=== PATIENT | male | born 1945 ===

== ENCOUNTER 2022-12-09 12:08 | Inpatient (IN) | payer MEDICARE, MEDICAID ==
[~2022-12-09] VITALS: Ht 170.2 cm; Wt 86.0 kg
[2022-12-09] MEDS ORDERED: CEFEPIME HCL 1 GM in DEXTROSE 5%-WATER 50 ML IV ONE (12:15)
[2022-12-09] MEDS ORDERED: 0.9% SODIUM CHLORIDE 10 ML SYRINGE IVP PRN (12:15)
[2022-12-09] MEDS ORDERED: INSU100V SQ (12:27)
[2022-12-09] MEDS ORDERED: ALLO-97 PO (12:27)
[2022-12-09] MEDS ORDERED: VALS160T2 PO (12:27)
[2022-12-09] MEDS ORDERED: DICL100G51 TP (12:27)
[2022-12-09] MEDS ORDERED: B CO1CAP6 PO (12:27)
[2022-12-09] MEDS ORDERED: CARV12 PO (12:27)
[2022-12-09] MEDS ORDERED: MIRT-89 PO (12:27)
[2022-12-09] MEDS ORDERED: CALC0.2521 PO (12:27)
[2022-12-09] MEDS ORDERED: INSLAN SQ (12:27)
[2022-12-09] MEDS ORDERED: ASPI-1450 PO (12:27)
[2022-12-09] MEDS ORDERED: SEVE0.8P6 PO (12:27)
[2022-12-09] MEDS ORDERED: TRAM-559 PO (12:27)
[2022-12-09] MEDS ORDERED: TAMS-13 PO (12:27)
[2022-12-09] MEDS ORDERED: GABA-1216 PO (12:27)
[2022-12-09] MEDS ORDERED: ATOR20TA PO (12:27)
[2022-12-09] MEDS ORDERED: AMOX1TAB15 PO (12:27)
[2022-12-09] MEDS ORDERED: CEPH-558 PO (12:27)
[2022-12-09] MEDS ORDERED: APIX2.5T PO (12:27)
[2022-12-09] MEDS ORDERED: CITA10TA99 PO (12:27)
[2022-12-09] MEDS ORDERED: SODIUM CHLORIDE 0.9% 1,350 ML IV ONE (12:30)
[2022-12-09 12:32] LABS: BASOPHILS % (AUTO) 0.4 % (0.0-2.0); EOSINOPHILS % (AUTO) 0 % (1.0-6.0); HEMATOCRIT 26.3 % (41-53); HEMOGLOBIN 8.5 g/dL (13.5-17.5); LYMPHOCYTES # (AUTO) 0.9 K/uL (1.0-4.8); LYMPHOCYTES % (AUTO) 3.8 % (22.0-44.0); MEAN CORPUSCULAR HEMOGLOBIN 29.6 pg (26.0-34.0); MEAN CORPUSCULAR HGB CONC 32.2 G/dL (31.0-37.0); MEAN CORPUSCULAR VOLUME 92 fL (80-100); MONOCYTES # (AUTO) 0.9 K/uL (0.1-1.0); NEUTROPHILS # (AUTO) 21.6 K/uL (1.8-7.7); NEUTROPHILS % (AUTO) 91.8 % (40.0-70.0); PLATELET COUNT (AUTO) 438 K/uL (150-450); RED BLOOD CELL COUNT(AUTO) 2.86 MIL/uL (4.50-5.90); RED CELL DISTRIBUTION WIDTH 16.8 % (11.5-14.5)
[2022-12-09 12:45] LABS: INR 1.4 (0.9-1.1); PROTHROMBIN TIME 14.2 SEC (9.4-11.6)
[2022-12-09 12:46] LABS: ANION GAP 15 mmol/L (8-16); CALCIUM, TOTAL 8.8 mg/dL (8.8-10.5); CARBON DIOXIDE 25 mmol/L (22-29); CHLORIDE 91 mmol/L (98-107); CREATININE 7.25 mg/dL (0.60-1.30); GLOMERULAR FILTR. RATE CALC 7 mL/min (>60); GLUCOSE,RANDOM 225 mg/dL (70-110); POTASSIUM 4.4 mmol/L (3.5-5.1); SODIUM SERUM 131 mmol/L (136-145)
[2022-12-09 12:52] LABS: ALANINE AMINOTRANSFERASE 16 U/L (12-78); ALBUMIN 1.4 g/dL (3.4-5.0); ALKALINE PHOSPHATASE 516 U/L (46-116); ASPARTATE AMINOTRANSFERASE 40 U/L (15-37); BILIRUBIN,TOTAL 1.2 mg/dL (0.1-1.0); TOTAL PROTEIN, SERUM 6.4 g/dL (6.4-8.2)
[2022-12-09 13:08] LABS: LACTIC ACID 2.4 mmol/L (0.4-2.0)
[2022-12-09 13:52] LABS: COVID AG,FIA SOURCE NASAL SWAB
[2022-12-09 14:17] LABS: INFLUENZA TYPE A NEGATIVE FOR TYPE A (NEGATIVE); INFLUENZA TYPE B NEGATIVE FOR TYPE B (NEGATIVE)
[2022-12-09] MEDS ORDERED: BISACODYL 10 MG RECTAL RECTAL SUPPOSITORY PR PRN (17:45)
[2022-12-09] MEDS ORDERED: MAGNESIUM HYDROXIDE SUSPENSION 30 ML UDCUP PO PRN (17:45)
[2022-12-09] MEDS ORDERED: SODIUM CHLORIDE 0.9% 1,000 ML IV ONE (17:45)
[2022-12-09] MEDS ORDERED: ONDANSETRON HCL 4 MG/2 ML VIAL IVP PRN (17:45)
[2022-12-09] MEDS ORDERED: PIPERACILLIN/TAZO 3.375 GM/D5W 50 ML IV ONE (18:00)
[2022-12-09] MEDS ORDERED: SEVE800T17 PO (18:10)
[2022-12-09] MEDS ORDERED: PENTETATE DTPA TC99M/MCL ISOTOPE 1 EA INJ INJ ONE (20:05)
[2022-12-09] MEDS ORDERED: MAA ALBUMIN AGGREGATED TC99M/UD<10MCL ISOTOPE 1 EA INJ INJ ONE (20:25)
[2022-12-09] MEDS ORDERED: PIPERACILLIN SODIUM/TAZOBACTAM 0.75 GM in DEXTROSE 5%-WATER 50 ML IV PRN (20:30)
[2022-12-09] MEDS: DOCUSATE SODIUM 100 MG CAPSULE PO SCH (21:00)
[2022-12-10] VITALS (13 sets, daily range): BP systolic 95–162; BP diastolic 38–93
[2022-12-10] MEDS: HEPARIN SODIUM,PORCINE 5,000 UNITS/ML VIAL SQ SCH ×2 (00:01→09:17)
[2022-12-10] MEDS: PIPERACILLIN SODIUM/TAZOBACTAM 2.25 GM in DEXTROSE 5%-WATER 50 ML IV SCH ×2 (01:51→09:19)
[2022-12-10] MEDS: NOREPINEPHRINE 8 MG/D5%-WATER 250 ML IV PRN (02:57)
[2022-12-10 06:04] LABS: BASOPHILS % (AUTO) 0.1 % (0.0-2.0); EOSINOPHILS % (AUTO) 0.4 % (1.0-6.0); HEMATOCRIT 27.3 % (41-53); HEMOGLOBIN 8.7 g/dL (13.5-17.5); LYMPHOCYTES # (AUTO) 0.9 K/uL (1.0-4.8); LYMPHOCYTES % (AUTO) 5.1 % (22.0-44.0); MEAN CORPUSCULAR HEMOGLOBIN 29.7 pg (26.0-34.0); MEAN CORPUSCULAR HGB CONC 31.9 G/dL (31.0-37.0); MEAN CORPUSCULAR VOLUME 93 fL (80-100); MONOCYTES # (AUTO) 0.8 K/uL (0.1-1.0); MONOCYTES % (AUTO) 4.5 % (2.0-9.0); NEUTROPHILS # (AUTO) 15.5 K/uL (1.8-7.7); PLATELET COUNT (AUTO) 422 K/uL (150-450); RED BLOOD CELL COUNT(AUTO) 2.94 MIL/uL (4.50-5.90); RED CELL DISTRIBUTION WIDTH 17.2 % (11.5-14.5)
[2022-12-10 06:17] LABS: CALCIUM, TOTAL 8.5 mg/dL (8.8-10.5); CREATININE 7.57 mg/dL (0.60-1.30); POTASSIUM 4.4 mmol/L (3.5-5.1)
[2022-12-10 06:18] LABS: NEUTROPHILS % (AUTO) 89.9 % (40.0-70.0)
[2022-12-10] MEDS: DOCUSATE SODIUM 100 MG CAPSULE PO SCH ×2 (09:00→20:47)
[2022-12-10] MEDS ORDERED: -POST HEMODIALYSIS NOTE- MISC SCH (09:00)
[2022-12-10] MEDS: PANTOPRAZOLE SODIUM 40 MG DR TABLET PO SCH (09:17)
[2022-12-10] MEDS ORDERED: VANCOMYCIN HCL 750 MG in DEXTROSE 5%-WATER 250 ML IV ONE (12:00)
[2022-12-10] MEDS ORDERED: VANCOMYCIN 1GM/WATER(PEG/NADA) 200 ML IV PRN (12:15)
[2022-12-10] MEDS ORDERED: DEXTROSE 50%-WATER 25 GM/50 ML SYRINGE IVP PRN (12:15)
[2022-12-10] MEDS: INSULIN LISPRO 100 UNITS/ML SQ PRN ×2 (13:10→17:55)
[2022-12-10] MEDS ORDERED: SODIUM CHLORIDE 0.9% 250 ML IV ONE (13:25)
[2022-12-10] MEDS: ACETAMINOPHEN 325 MG TABLET PO PRN (15:48)
[2022-12-10 18:01] LABS: GLUCOSE,POINT OF CARE 209 MG/DL (70-110)
[2022-12-10 19:01] LABS: GLUCOSE,POINT OF CARE 190 MG/DL (70-110)
[2022-12-10] MEDS ORDERED: VANCOMYCIN 1GM/WATER(PEG/NADA) 200 ML IV ONE (20:00)
[2022-12-10] MEDS: APIXABAN 2.5 MG TABLET PO SCH (20:47)
[2022-12-10] MEDS: TAMSULOSIN HCL 0.4 MG CAPSULE PO SCH (20:47)
[2022-12-10] MEDS: ATORVASTATIN CALCIUM 20 MG TABLET PO SCH (20:47)
[2022-12-10] MEDS: MIRTAZAPINE 15 MG TABLET PO SCH (20:47)
[2022-12-10] MEDS: CLINDAMYCIN 900 MG/D5% WATER 50 ML IV SCH (23:10)
[2022-12-11] VITALS: BP 118/51
[2022-12-11] MEDS: ACETAMINOPHEN 325 MG TABLET PO PRN (01:12)
[2022-12-11 04:00] VITALS: BP 106/52
[2022-12-11] MEDS: CLINDAMYCIN 900 MG/D5% WATER 50 ML IV SCH ×3 (06:02→22:53)
[2022-12-11] MEDS: INSULIN LISPRO 100 UNITS/ML SQ PRN ×3 (06:09→17:43)
[2022-12-11 06:46] LABS: GLUCOSE,POINT OF CARE 198 MG/DL (70-110)
[2022-12-11 08:00] VITALS: BP 110/56
[2022-12-11] MEDS: DOCUSATE SODIUM 100 MG CAPSULE PO SCH ×2 (09:00→20:12)
[2022-12-11 09:05] LABS: BASOPHILS % (AUTO) 0.6 % (0.0-2.0); EOSINOPHILS % (AUTO) 0.6 % (1.0-6.0); HEMATOCRIT 26.1 % (41-53); HEMOGLOBIN 8.1 g/dL (13.5-17.5); LYMPHOCYTES % (AUTO) 6.4 % (22.0-44.0); MEAN CORPUSCULAR HEMOGLOBIN 29.2 pg (26.0-34.0); MEAN CORPUSCULAR HGB CONC 31.2 G/dL (31.0-37.0); MEAN CORPUSCULAR VOLUME 94 fL (80-100); MONOCYTES % (AUTO) 6.2 % (2.0-9.0); NEUTROPHILS # (AUTO) 13.5 K/uL (1.8-7.7); PLATELET COUNT (AUTO) 432 K/uL (150-450); RED BLOOD CELL COUNT(AUTO) 2.78 MIL/uL (4.50-5.90)
[2022-12-11 09:06] LABS: NEUTROPHILS % (AUTO) 86.2 % (40.0-70.0)
[2022-12-11 09:17] LABS: CALCIUM, TOTAL 8.3 mg/dL (8.8-10.5); CREATININE 5.17 mg/dL (0.60-1.30); POTASSIUM 3.8 mmol/L (3.5-5.1)
[2022-12-11] MEDS: APIXABAN 2.5 MG TABLET PO SCH ×2 (09:32→20:12)
[2022-12-11] MEDS: PANTOPRAZOLE SODIUM 40 MG DR TABLET PO SCH (09:32)
[2022-12-11 12:00] VITALS: BP 93/51
[2022-12-11] MEDS: MORPHINE SULFATE 2 MG/ML SYRINGE IVP PRN (12:06)
[2022-12-11] MEDS: ALBUMIN HUMAN 25%-25GM/100ML 100 ML IV SCH (12:07)
[2022-12-11 14:01] LABS: GLUCOSE,POINT OF CARE 220 MG/DL (70-110)
[2022-12-11 19:11] LABS: GLUCOSE,POINT OF CARE 207 MG/DL (70-110)
[2022-12-11 20:00] VITALS: BP 108/50
[2022-12-11] MEDS: TAMSULOSIN HCL 0.4 MG CAPSULE PO SCH (20:11)
[2022-12-11] MEDS: ATORVASTATIN CALCIUM 20 MG TABLET PO SCH (20:12)
[2022-12-11] MEDS: MIRTAZAPINE 15 MG TABLET PO SCH (20:12)
[2022-12-12] VITALS: BP 101/62
[2022-12-12] MEDS: ALBUMIN HUMAN 25%-25GM/100ML 100 ML IV SCH ×2 (00:01→12:13)
[2022-12-12] MEDS: INSULIN LISPRO 100 UNITS/ML SQ PRN ×3 (00:02→17:45)
[2022-12-12 00:11] LABS: GLUCOSE,POINT OF CARE 159 MG/DL (70-110)
[2022-12-12 04:00] VITALS: BP 102/53
[2022-12-12 05:54] LABS: BASOPHILS % (AUTO) 0.3 % (0.0-2.0); EOSINOPHILS % (AUTO) 0.9 % (1.0-6.0); HEMATOCRIT 22.4 % (41-53); HEMOGLOBIN 7.2 g/dL (13.5-17.5); LYMPHOCYTES # (AUTO) 0.8 K/uL (1.0-4.8); LYMPHOCYTES % (AUTO) 6.9 % (22.0-44.0); MEAN CORPUSCULAR HEMOGLOBIN 29.9 pg (26.0-34.0); MEAN CORPUSCULAR HGB CONC 32.3 G/dL (31.0-37.0); MEAN CORPUSCULAR VOLUME 93 fL (80-100); MONOCYTES # (AUTO) 0.8 K/uL (0.1-1.0); NEUTROPHILS # (AUTO) 10.1 K/uL (1.8-7.7); NEUTROPHILS % (AUTO) 84.9 % (40.0-70.0); PLATELET COUNT (AUTO) 381 K/uL (150-450); RED BLOOD CELL COUNT(AUTO) 2.41 MIL/uL (4.50-5.90); RED CELL DISTRIBUTION WIDTH 17.1 % (11.5-14.5)
[2022-12-12 06:04] LABS: ANION GAP 15 mmol/L (8-16); CALCIUM, TOTAL 8.4 mg/dL (8.8-10.5); CARBON DIOXIDE 24 mmol/L (22-29); CHLORIDE 96 mmol/L (98-107); CREATININE 5.87 mg/dL (0.60-1.30); GLOMERULAR FILTR. RATE CALC 9 mL/min (>60); GLUCOSE,RANDOM 157 mg/dL (70-110); POTASSIUM 4.5 mmol/L (3.5-5.1); SODIUM SERUM 135 mmol/L (136-145); VANCOMYCIN,RANDOM 18.7 mcg/mL (25.0-50.0)
[2022-12-12] MEDS: CLINDAMYCIN 900 MG/D5% WATER 50 ML IV SCH ×3 (06:23→22:31)
[2022-12-12] MEDS: DOCUSATE SODIUM 100 MG CAPSULE PO SCH ×2 (08:10→21:00)
[2022-12-12] MEDS: EPOETIN ALFA 10,000 UNITS/ML VIAL SQ SCH (08:10)
[2022-12-12] MEDS: APIXABAN 2.5 MG TABLET PO SCH ×2 (08:10→21:40)
[2022-12-12] MEDS: PANTOPRAZOLE SODIUM 40 MG DR TABLET PO SCH (08:11)
[2022-12-12 08:31] LABS: GLUCOSE,POINT OF CARE 147 MG/DL (70-110)
[2022-12-12 12:00] VITALS: BP 102/51
[2022-12-12] MEDS: ACETAMINOPHEN 325 MG TABLET PO PRN (12:13)
[2022-12-12] MEDS ORDERED: VANCOMYCIN HCL 750 MG in DEXTROSE 5%-WATER 250 ML IV ONE (15:00)
[2022-12-12 16:00] VITALS: BP 123/70
[2022-12-12 20:00] VITALS: BP 138/58
[2022-12-12 20:31] LABS: GLUCOSE,POINT OF CARE 173 MG/DL (70-110)
[2022-12-12 20:31] LABS: GLUCOSE,POINT OF CARE 171 MG/DL (70-110)
[2022-12-12] MEDS: ATORVASTATIN CALCIUM 20 MG TABLET PO SCH (21:40)
[2022-12-12] MEDS: TAMSULOSIN HCL 0.4 MG CAPSULE PO SCH (21:40)
[2022-12-12] MEDS: MIRTAZAPINE 15 MG TABLET PO SCH (21:40)
[2022-12-12] MEDS ORDERED: SODIUM CHLORIDE 0.9% 250 ML IV ONE (22:33)
[2022-12-13] VITALS: BP 138/52
[2022-12-13] MEDS: INSULIN LISPRO 100 UNITS/ML SQ PRN ×3 (00:03→23:45)
[2022-12-13] MEDS: ALBUMIN HUMAN 25%-25GM/100ML 100 ML IV SCH ×3 (00:07→23:45)
[2022-12-13] MEDS: ACETAMINOPHEN 325 MG TABLET PO PRN (01:15)
[2022-12-13 04:00] VITALS: BP 90/47
[2022-12-13 05:31] LABS: GLUCOSE,POINT OF CARE 171 MG/DL (70-110)
[2022-12-13 05:44] LABS: HEMATOCRIT 23.3 % (41-53); HEMOGLOBIN 7.5 g/dL (13.5-17.5); MONOCYTES # (AUTO) 0.8 K/uL (0.1-1.0); NEUTROPHILS # (AUTO) 9.7 K/uL (1.8-7.7)
[2022-12-13 05:52] LABS: BASOPHILS % (AUTO) 0.3 % (0.0-2.0); EOSINOPHILS % (AUTO) 0.7 % (1.0-6.0); LYMPHOCYTES % (AUTO) 8.4 % (22.0-44.0); MEAN CORPUSCULAR HGB CONC 32.2 G/dL (31.0-37.0); MEAN CORPUSCULAR VOLUME 93 fL (80-100); MONOCYTES % (AUTO) 6.9 % (2.0-9.0); NEUTROPHILS % (AUTO) 83.7 % (40.0-70.0); PLATELET COUNT (AUTO) 356 K/uL (150-450); RED CELL DISTRIBUTION WIDTH 16.6 % (11.5-14.5)
[2022-12-13] MEDS: CLINDAMYCIN 900 MG/D5% WATER 50 ML IV SCH ×2 (06:02→13:22)
[2022-12-13 06:03] LABS: ALBUMIN 2.3 g/dL (3.4-5.0); BILIRUBIN,TOTAL 2.6 mg/dL (0.1-1.0); CALCIUM, TOTAL 8.5 mg/dL (8.8-10.5); CREATININE 6.87 mg/dL (0.60-1.30); POTASSIUM 4.7 mmol/L (3.5-5.1); TOTAL PROTEIN, SERUM 6.8 g/dL (6.4-8.2)
[2022-12-13 08:00] VITALS: BP 107/48
[2022-12-13] MEDS: DOCUSATE SODIUM 100 MG CAPSULE PO SCH ×2 (08:24→20:54)
[2022-12-13] MEDS: APIXABAN 2.5 MG TABLET PO SCH ×2 (08:25→20:52)
[2022-12-13] MEDS: PANTOPRAZOLE SODIUM 40 MG DR TABLET PO SCH (08:27)
[2022-12-13 11:52] LABS: GLUCOSE,POINT OF CARE 139 MG/DL (70-110)
[2022-12-13 12:00] VITALS: BP 112/39
[2022-12-13 14:21] LABS: GLUCOSE,POINT OF CARE 189 MG/DL (70-110)
[2022-12-13 16:04] VITALS: BP 118/59
[2022-12-13] MEDS: NOREPINEPHRINE 8 MG/D5%-WATER 250 ML IV PRN (17:30)
[2022-12-13 19:06] LABS: GLUCOSE,POINT OF CARE 167 MG/DL (70-110)
[2022-12-13 20:00] VITALS: BP 119/54
[2022-12-13] MEDS: MIRTAZAPINE 15 MG TABLET PO SCH (20:52)
[2022-12-13] MEDS: ATORVASTATIN CALCIUM 20 MG TABLET PO SCH (20:52)
[2022-12-13] MEDS: TAMSULOSIN HCL 0.4 MG CAPSULE PO SCH (20:52)
[2022-12-13] MEDS ORDERED: SODIUM CHLORIDE 0.9% 250 ML IV ONE (23:50)
[2022-12-14] VITALS (13 sets, daily range): BP systolic 111–134; BP diastolic 42–64
[2022-12-14 01:11] LABS: GLUCOSE,POINT OF CARE 171 MG/DL (70-110)
[2022-12-14 05:43] LABS: BASOPHILS % (AUTO) 0.4 % (0.0-2.0); EOSINOPHILS % (AUTO) 1.2 % (1.0-6.0); HEMATOCRIT 24.2 % (41-53); HEMOGLOBIN 7.9 g/dL (13.5-17.5); LYMPHOCYTES # (AUTO) 0.6 K/uL (1.0-4.8); LYMPHOCYTES % (AUTO) 5.1 % (22.0-44.0); MEAN CORPUSCULAR HGB CONC 32.5 G/dL (31.0-37.0); MEAN CORPUSCULAR VOLUME 92 fL (80-100); MONOCYTES # (AUTO) 0.7 K/uL (0.1-1.0); MONOCYTES % (AUTO) 6.3 % (2.0-9.0); NEUTROPHILS # (AUTO) 9.6 K/uL (1.8-7.7); PLATELET COUNT (AUTO) 406 K/uL (150-450); RED BLOOD CELL COUNT(AUTO) 2.63 MIL/uL (4.50-5.90); RED CELL DISTRIBUTION WIDTH 17.1 % (11.5-14.5)
[2022-12-14 05:52] LABS: ALBUMIN 2.3 g/dL (3.4-5.0); BILIRUBIN,TOTAL 1.8 mg/dL (0.1-1.0); CALCIUM, TOTAL 8.3 mg/dL (8.8-10.5); CREATININE 4.05 mg/dL (0.60-1.30); POTASSIUM 3.5 mmol/L (3.5-5.1); TOTAL PROTEIN, SERUM 6.4 g/dL (6.4-8.2)
[2022-12-14 06:51] LABS: GLUCOSE,POINT OF CARE 117 MG/DL (70-110)
[2022-12-14] MEDS: APIXABAN 2.5 MG TABLET PO SCH ×2 (08:28→21:11)
[2022-12-14] MEDS: PANTOPRAZOLE SODIUM 40 MG DR TABLET PO SCH (08:28)
[2022-12-14] MEDS: DOCUSATE SODIUM 100 MG CAPSULE PO SCH ×2 (08:29→21:00)
[2022-12-14] MEDS: EPOETIN ALFA 10,000 UNITS/ML VIAL SQ SCH (08:29)
[2022-12-14] MEDS ORDERED: CALCITRIOL 0.25 MCG CAPSULE PO ONE (09:00)
[2022-12-14] MEDS: HYDROCODONE/ACETAMINOPHEN 5-325 MG TABLET PO PRN (09:12)
[2022-12-14] MEDS: INSULIN LISPRO 100 UNITS/ML SQ PRN (18:01)
[2022-12-14 19:11] LABS: GLUCOSE,POINT OF CARE 153 MG/DL (70-110)
[2022-12-14 19:11] LABS: GLUCOSE,POINT OF CARE 168 MG/DL (70-110)
[2022-12-14] MEDS: TAMSULOSIN HCL 0.4 MG CAPSULE PO SCH (21:10)
[2022-12-14] MEDS: ATORVASTATIN CALCIUM 20 MG TABLET PO SCH (21:10)
[2022-12-14] MEDS: MIRTAZAPINE 15 MG TABLET PO SCH (21:11)
[2022-12-15] VITALS: BP 115/56
[2022-12-15 04:00] VITALS: BP 117/55
[2022-12-15 07:06] LABS: GLUCOSE,POINT OF CARE 140 MG/DL (70-110)
[2022-12-15 07:06] LABS: GLUCOSE,POINT OF CARE 131 MG/DL (70-110)
[2022-12-15] MEDS: DOCUSATE SODIUM 100 MG CAPSULE PO SCH ×2 (07:46→20:29)
[2022-12-15 08:00] VITALS: BP 111/67
[2022-12-15] MEDS: APIXABAN 2.5 MG TABLET PO SCH ×2 (08:33→20:27)
[2022-12-15] MEDS: PANTOPRAZOLE SODIUM 40 MG DR TABLET PO SCH (08:33)
[2022-12-15 12:00] VITALS: BP 127/50
[2022-12-15] MEDS: INSULIN LISPRO 100 UNITS/ML SQ PRN ×2 (12:18→18:12)
[2022-12-15] MEDS: HYDROCODONE/ACETAMINOPHEN 5-325 MG TABLET PO PRN (15:28)
[2022-12-15 16:00] VITALS: BP 113/51
[2022-12-15 16:21] LABS: GLUCOSE,POINT OF CARE 152 MG/DL (70-110)
[2022-12-15 19:11] LABS: GLUCOSE,POINT OF CARE 157 MG/DL (70-110)
[2022-12-15 20:00] VITALS: BP 110/64
[2022-12-15] MEDS: TAMSULOSIN HCL 0.4 MG CAPSULE PO SCH (20:28)
[2022-12-15] MEDS: ATORVASTATIN CALCIUM 20 MG TABLET PO SCH (20:28)
[2022-12-15] MEDS: MIRTAZAPINE 15 MG TABLET PO SCH (20:28)
[2022-12-16] VITALS (10 sets, daily range): BP systolic 103–139; BP diastolic 52–79
[2022-12-16 05:40] LABS: BASOPHILS % (AUTO) 0.6 % (0.0-2.0); EOSINOPHILS % (AUTO) 1.1 % (1.0-6.0); HEMATOCRIT 29.8 % (41-53); HEMOGLOBIN 9.5 g/dL (13.5-17.5); LYMPHOCYTES # (AUTO) 0.8 K/uL (1.0-4.8); LYMPHOCYTES % (AUTO) 7.4 % (22.0-44.0); MEAN CORPUSCULAR HEMOGLOBIN 29.9 pg (26.0-34.0); MEAN CORPUSCULAR HGB CONC 31.9 G/dL (31.0-37.0); MEAN CORPUSCULAR VOLUME 94 fL (80-100); MONOCYTES # (AUTO) 0.8 K/uL (0.1-1.0); MONOCYTES % (AUTO) 6.9 % (2.0-9.0); NEUTROPHILS # (AUTO) 9.4 K/uL (1.8-7.7); PLATELET COUNT (AUTO) 476 K/uL (150-450); RED BLOOD CELL COUNT(AUTO) 3.17 MIL/uL (4.50-5.90); RED CELL DISTRIBUTION WIDTH 17.2 % (11.5-14.5)
[2022-12-16 05:49] LABS: ALBUMIN 1.9 g/dL (3.4-5.0); BILIRUBIN,TOTAL 1.4 mg/dL (0.1-1.0); CALCIUM, TOTAL 8.7 mg/dL (8.8-10.5); CREATININE 6.41 mg/dL (0.60-1.30); POTASSIUM 4.8 mmol/L (3.5-5.1); TOTAL PROTEIN, SERUM 6.3 g/dL (6.4-8.2)
[2022-12-16] MEDS: DOCUSATE SODIUM 100 MG CAPSULE PO SCH ×2 (08:53→20:15)
[2022-12-16] MEDS: APIXABAN 2.5 MG TABLET PO SCH ×2 (08:53→20:14)
[2022-12-16] MEDS: PANTOPRAZOLE SODIUM 40 MG DR TABLET PO SCH (08:53)
[2022-12-16] MEDS: EPOETIN ALFA 10,000 UNITS/ML VIAL SQ SCH (08:54)
[2022-12-16] MEDS ORDERED: SODIUM CHLORIDE 0.9% 1,000 ML ONE (10:23)
[2022-12-16 10:26] LABS: GLUCOSE,POINT OF CARE 133 MG/DL (70-110)
[2022-12-16] MEDS: INSULIN LISPRO 100 UNITS/ML SQ PRN ×3 (12:55→23:41)
[2022-12-16 13:06] LABS: GLUCOSE,POINT OF CARE 163 MG/DL (70-110)
[2022-12-16 17:21] LABS: GLUCOSE,POINT OF CARE 217 MG/DL (70-110)
[2022-12-16] MEDS ORDERED: VANCOMYCIN 1GM/WATER(PEG/NADA) 200 ML IV ONE (18:00)
[2022-12-16] MEDS: HYDROCODONE/ACETAMINOPHEN 5-325 MG TABLET PO PRN (20:14)
[2022-12-16] MEDS: ATORVASTATIN CALCIUM 20 MG TABLET PO SCH (20:14)
[2022-12-16] MEDS: TAMSULOSIN HCL 0.4 MG CAPSULE PO SCH (20:15)
[2022-12-16] MEDS: MIRTAZAPINE 15 MG TABLET PO SCH (20:15)
[2022-12-16 23:46] LABS: GLUCOSE,POINT OF CARE 173 MG/DL (70-110)
[2022-12-17] VITALS (15 sets, daily range): BP systolic 103–160; BP diastolic 43–88
[2022-12-17] MEDS: INSULIN LISPRO 100 UNITS/ML SQ PRN ×3 (06:46→18:17)
[2022-12-17 06:51] LABS: GLUCOSE,POINT OF CARE 167 MG/DL (70-110)
[2022-12-17] MEDS: DOCUSATE SODIUM 100 MG CAPSULE PO SCH ×2 (09:00→21:09)
[2022-12-17] MEDS: PANTOPRAZOLE SODIUM 40 MG DR TABLET PO SCH (09:22)
[2022-12-17] MEDS: APIXABAN 2.5 MG TABLET PO SCH ×2 (09:22→21:09)
[2022-12-17] MEDS: HYDROCODONE/ACETAMINOPHEN 5-325 MG TABLET PO PRN (12:04)
[2022-12-17] MEDS ORDERED: SODIUM CHLORIDE 0.9% 250 ML IV ONE (13:41)
[2022-12-17] MEDS ORDERED: SODIUM CHLORIDE 0.9% 2,000 ML ONE (14:21)
[2022-12-17] MEDS: DEXTROSE 5% IV SCH (16:25)
[2022-12-17] MEDS: CEFTAROLINE FOSAMIL IV SCH (16:25)
[2022-12-17] MEDS: WATER IV SCH (16:25)
[2022-12-17 20:46] LABS: GLUCOSE,POINT OF CARE 216 MG/DL (70-110)
[2022-12-17 20:46] LABS: GLUCOSE,POINT OF CARE 181 MG/DL (70-110)
[2022-12-17] MEDS: ATORVASTATIN CALCIUM 20 MG TABLET PO SCH (21:08)
[2022-12-17] MEDS: MIRTAZAPINE 15 MG TABLET PO SCH (21:08)
[2022-12-17] MEDS: TAMSULOSIN HCL 0.4 MG CAPSULE PO SCH (21:09)
[2022-12-18] MEDS: CEFTAROLINE FOSAMIL IV SCH ×3 (00:48→20:34)
[2022-12-18] MEDS: WATER IV SCH ×3 (00:48→20:34)
[2022-12-18] MEDS: DEXTROSE 5% IV SCH ×3 (00:48→20:34)
[2022-12-18] MEDS ORDERED: SODIUM CHLORIDE 0.9% 1,000 ML ONE (00:51)
[2022-12-18 05:27] VITALS: BP 125/63
[2022-12-18] MEDS: INSULIN LISPRO 100 UNITS/ML SQ PRN ×4 (06:09→20:36)
[2022-12-18 06:42] LABS: CREATININE 4.01 mg/dL (0.60-1.30)
[2022-12-18 06:48] LABS: ALBUMIN 1.9 g/dL (3.4-5.0); BILIRUBIN,TOTAL 1.3 mg/dL (0.1-1.0); CALCIUM, TOTAL 8.8 mg/dL (8.8-10.5); CREATININE 4.14 mg/dL (0.60-1.30); TOTAL PROTEIN, SERUM 6.7 g/dL (6.4-8.2)
[2022-12-18 07:00] LABS: BASOPHILS % (AUTO) 0.7 % (0.0-2.0); EOSINOPHILS % (AUTO) 1.2 % (1.0-6.0); HEMOGLOBIN 8.9 g/dL (13.5-17.5); MEAN CORPUSCULAR HEMOGLOBIN 30.3 pg (26.0-34.0); MEAN CORPUSCULAR HGB CONC 31.9 G/dL (31.0-37.0); MEAN CORPUSCULAR VOLUME 95 fL (80-100); MONOCYTES # (AUTO) 0.9 K/uL (0.1-1.0); NEUTROPHILS % (AUTO) 79.1 % (40.0-70.0); PLATELET COUNT (AUTO) 455 K/uL (150-450); RED BLOOD CELL COUNT(AUTO) 2.95 MIL/uL (4.50-5.90); RED CELL DISTRIBUTION WIDTH 18.3 % (11.5-14.5)
[2022-12-18 07:44] VITALS: BP 117/85
[2022-12-18] MEDS: DOCUSATE SODIUM 100 MG CAPSULE PO SCH ×2 (08:02→20:34)
[2022-12-18] MEDS: APIXABAN 2.5 MG TABLET PO SCH ×2 (08:02→20:34)
[2022-12-18] MEDS: PANTOPRAZOLE SODIUM 40 MG DR TABLET PO SCH (08:02)
[2022-12-18 08:21] LABS: GLUCOMETER DEV NAME(LOC) 5S.1B; GLUCOSE,POINT OF CARE 200 MG/DL (70-110)
[2022-12-18 11:31] VITALS: BP 124/80
[2022-12-18 14:56] LABS: GLUCOMETER DEV NAME(LOC) 5N.2C; GLUCOSE,POINT OF CARE 234 MG/DL (70-110)
[2022-12-18 15:57] VITALS: BP 131/74
[2022-12-18 19:42] VITALS: BP 160/90
[2022-12-18 20:22] LABS: GLUCOMETER DEV NAME(LOC) 5N.2C; GLUCOSE,POINT OF CARE 282 MG/DL (70-110)
[2022-12-18] MEDS: TAMSULOSIN HCL 0.4 MG CAPSULE PO SCH (20:33)
[2022-12-18] MEDS: ATORVASTATIN CALCIUM 20 MG TABLET PO SCH (20:33)
[2022-12-18] MEDS: MIRTAZAPINE 15 MG TABLET PO SCH (20:33)
[2022-12-18 20:36] LABS: GLUCOMETER DEV NAME(LOC) 5N.2C; GLUCOSE,POINT OF CARE 253 MG/DL (70-110)
[2022-12-18] MEDS: HYDROCODONE/ACETAMINOPHEN 5-325 MG TABLET PO PRN (20:36)
[2022-12-19] VITALS (13 sets, daily range): BP systolic 132–188; BP diastolic 66–113
[2022-12-19] MEDS: INSULIN LISPRO 100 UNITS/ML SQ PRN ×4 (06:03→21:27)
[2022-12-19 07:26] LABS: BASOPHILS % (AUTO) 0.6 % (0.0-2.0); EOSINOPHILS % (AUTO) 1.4 % (1.0-6.0); HEMATOCRIT 25.3 % (41-53); HEMOGLOBIN 8.1 g/dL (13.5-17.5); LYMPHOCYTES # (AUTO) 1.1 K/uL (1.0-4.8); LYMPHOCYTES % (AUTO) 12.1 % (22.0-44.0); MEAN CORPUSCULAR HEMOGLOBIN 30.4 pg (26.0-34.0); MEAN CORPUSCULAR HGB CONC 32.1 G/dL (31.0-37.0); MEAN CORPUSCULAR VOLUME 95 fL (80-100); MONOCYTES # (AUTO) 0.8 K/uL (0.1-1.0); MONOCYTES % (AUTO) 9.1 % (2.0-9.0); NEUTROPHILS # (AUTO) 7.1 K/uL (1.8-7.7); NEUTROPHILS % (AUTO) 76.8 % (40.0-70.0); PLATELET COUNT (AUTO) 402 K/uL (150-450); RED BLOOD CELL COUNT(AUTO) 2.67 MIL/uL (4.50-5.90); RED CELL DISTRIBUTION WIDTH 18.4 % (11.5-14.5)
[2022-12-19 07:45] LABS: CALCIUM, TOTAL 8.9 mg/dL (8.8-10.5); CREATININE 5.16 mg/dL (0.60-1.30); MAGNESIUM 2.2 mg/dL (1.80-2.40); PHOSPHORUS 5.1 mg/dL (2.5-4.9); POTASSIUM 3.9 mmol/L (3.5-5.1)
[2022-12-19 08:46] LABS: GLUCOMETER DEV NAME(LOC) 5S.1B; GLUCOSE,POINT OF CARE 194 MG/DL (70-110)
[2022-12-19] MEDS: DEXTROSE 5% IV SCH ×2 (08:47→21:14)
[2022-12-19] MEDS: CEFTAROLINE FOSAMIL IV SCH ×2 (08:47→21:14)
[2022-12-19] MEDS: WATER IV SCH ×2 (08:47→21:14)
[2022-12-19] MEDS: APIXABAN 2.5 MG TABLET PO SCH ×2 (08:48→21:15)
[2022-12-19] MEDS: DOCUSATE SODIUM 100 MG CAPSULE PO SCH ×2 (08:48→21:14)
[2022-12-19] MEDS: EPOETIN ALFA 10,000 UNITS/ML VIAL SQ SCH (08:48)
[2022-12-19] MEDS: PANTOPRAZOLE SODIUM 40 MG DR TABLET PO SCH (08:48)
[2022-12-19] MEDS ORDERED: SODIUM CHLORIDE 0.9% 1,000 ML ONE (11:01)
[2022-12-19] MEDS ORDERED: VANCOMYCIN HCL 500 MG in DEXTROSE 5%-WATER 100 ML IV ONE (16:00)
[2022-12-19] MEDS: ATORVASTATIN CALCIUM 20 MG TABLET PO SCH (21:15)
[2022-12-19] MEDS: TAMSULOSIN HCL 0.4 MG CAPSULE PO SCH (21:15)
[2022-12-19] MEDS: MIRTAZAPINE 15 MG TABLET PO SCH (21:21)
[2022-12-19 21:41] LABS: GLUCOMETER DEV NAME(LOC) 5N.1C; GLUCOSE,POINT OF CARE 229 MG/DL (70-110)
[2022-12-20] MEDS: ZOLPIDEM TARTRATE 5 MG TABLET PO PRN (01:32)
[2022-12-20 01:41] LABS: GLUCOMETER DEV NAME(LOC) 5S.2C; GLUCOSE,POINT OF CARE 202 MG/DL (70-110)
[2022-12-20] MEDS: INSULIN LISPRO 100 UNITS/ML SQ PRN ×3 (05:57→18:08)
[2022-12-20 06:26] LABS: GLUCOMETER DEV NAME(LOC) 5S.1B; GLUCOSE,POINT OF CARE 186 MG/DL (70-110)
[2022-12-20 06:26] LABS: GLUCOMETER DEV NAME(LOC) 5S.1B; GLUCOSE,POINT OF CARE 243 MG/DL (70-110)
[2022-12-20 06:28] LABS: BASOPHILS % (AUTO) 0.7 % (0.0-2.0); EOSINOPHILS % (AUTO) 1.5 % (1.0-6.0); HEMATOCRIT 27.2 % (41-53); HEMOGLOBIN 8.6 g/dL (13.5-17.5); LYMPHOCYTES # (AUTO) 0.9 K/uL (1.0-4.8); LYMPHOCYTES % (AUTO) 12.1 % (22.0-44.0); MEAN CORPUSCULAR HEMOGLOBIN 30.3 pg (26.0-34.0); MEAN CORPUSCULAR HGB CONC 31.8 G/dL (31.0-37.0); MEAN CORPUSCULAR VOLUME 95 fL (80-100); MONOCYTES # (AUTO) 0.8 K/uL (0.1-1.0); MONOCYTES % (AUTO) 10.2 % (2.0-9.0); NEUTROPHILS # (AUTO) 5.8 K/uL (1.8-7.7); NEUTROPHILS % (AUTO) 75.5 % (40.0-70.0); PLATELET COUNT (AUTO) 369 K/uL (150-450); RED BLOOD CELL COUNT(AUTO) 2.85 MIL/uL (4.50-5.90); RED CELL DISTRIBUTION WIDTH 19.4 % (11.5-14.5)
[2022-12-20 06:53] LABS: ALBUMIN 1.9 g/dL (3.4-5.0); BILIRUBIN,TOTAL 1.1 mg/dL (0.1-1.0); CALCIUM, TOTAL 8.9 mg/dL (8.8-10.5); CREATININE 3.76 mg/dL (0.60-1.30); POTASSIUM 3.6 mmol/L (3.5-5.1); TOTAL PROTEIN, SERUM 6.5 g/dL (6.4-8.2)
[2022-12-20 07:45] VITALS: BP 134/82
[2022-12-20] MEDS: CEFTAROLINE FOSAMIL IV SCH ×2 (09:18→20:08)
[2022-12-20] MEDS: WATER IV SCH ×2 (09:18→20:08)
[2022-12-20] MEDS: DOCUSATE SODIUM 100 MG CAPSULE PO SCH ×2 (09:18→20:07)
[2022-12-20] MEDS: DEXTROSE 5% IV SCH ×2 (09:18→20:08)
[2022-12-20] MEDS: APIXABAN 2.5 MG TABLET PO SCH ×2 (09:18→20:07)
[2022-12-20] MEDS: PANTOPRAZOLE SODIUM 40 MG DR TABLET PO SCH (09:18)
[2022-12-20 11:09] VITALS: BP 155/80
[2022-12-20 15:08] VITALS: BP 156/80
[2022-12-20 20:06] LABS: GLUCOMETER DEV NAME(LOC) 5N.1C; GLUCOSE,POINT OF CARE 208 MG/DL (70-110)
[2022-12-20 20:06] LABS: GLUCOMETER DEV NAME(LOC) 5N.1C; GLUCOSE,POINT OF CARE 179 MG/DL (70-110)
[2022-12-20] MEDS: ATORVASTATIN CALCIUM 20 MG TABLET PO SCH (20:07)
[2022-12-20] MEDS: TAMSULOSIN HCL 0.4 MG CAPSULE PO SCH (20:07)
[2022-12-20] MEDS: MIRTAZAPINE 15 MG TABLET PO SCH (20:07)
[2022-12-20 21:00] VITALS: BP 103/81
[2022-12-20 22:11] LABS: GLUCOMETER DEV NAME(LOC) 5S.1B; GLUCOSE,POINT OF CARE 170 MG/DL (70-110)
[2022-12-21] VITALS (15 sets, daily range): BP systolic 143–174; BP diastolic 65–90
[2022-12-21] MEDS ORDERED: IOHEXOL 350 MG/ML 100 ML VIAL ONE (00:57)
[2022-12-21] MEDS ORDERED: SODIUM CHLORIDE 0.9% 100 ML ONE (00:57)
[2022-12-21] MEDS: MORPHINE SULFATE 2 MG/ML SYRINGE IVP PRN (04:30)
[2022-12-21] MEDS: INSULIN LISPRO 100 UNITS/ML SQ PRN ×4 (05:59→21:32)
[2022-12-21 06:11] LABS: GLUCOMETER DEV NAME(LOC) 5N.2C; GLUCOSE,POINT OF CARE 179 MG/DL (70-110)
[2022-12-21 06:44] LABS: BASOPHILS % (AUTO) 0.6 % (0.0-2.0); EOSINOPHILS % (AUTO) 0.7 % (1.0-6.0); HEMATOCRIT 27.5 % (41-53); HEMOGLOBIN 8.7 g/dL (13.5-17.5); LYMPHOCYTES # (AUTO) 0.8 K/uL (1.0-4.8); LYMPHOCYTES % (AUTO) 8.9 % (22.0-44.0); MEAN CORPUSCULAR HEMOGLOBIN 30.1 pg (26.0-34.0); MEAN CORPUSCULAR HGB CONC 31.5 G/dL (31.0-37.0); MEAN CORPUSCULAR VOLUME 95 fL (80-100); NEUTROPHILS # (AUTO) 7.3 K/uL (1.8-7.7); NEUTROPHILS % (AUTO) 78.8 % (40.0-70.0); PLATELET COUNT (AUTO) 387 K/uL (150-450); RED BLOOD CELL COUNT(AUTO) 2.89 MIL/uL (4.50-5.90); RED CELL DISTRIBUTION WIDTH 19.5 % (11.5-14.5)
[2022-12-21 06:54] LABS: INR 1.5 (0.9-1.1); PROTHROMBIN TIME 15.4 SEC (9.4-11.6)
[2022-12-21 07:02] LABS: ALBUMIN 2.1 g/dL (3.4-5.0); BILIRUBIN,TOTAL 1.3 mg/dL (0.1-1.0); C-REACTIVE PROTEIN QUANT 12.29 mg/dL (0.00-0.30); CALCIUM, TOTAL 9.3 mg/dL (8.8-10.5); CREATININE 4.64 mg/dL (0.60-1.30); POTASSIUM 3.8 mmol/L (3.5-5.1); TOTAL PROTEIN, SERUM 6.8 g/dL (6.4-8.2); VANCOMYCIN,RANDOM 21.1 mcg/mL (25.0-50.0)
[2022-12-21] MEDS: DEXTROSE 5% IV SCH ×2 (07:58→21:26)
[2022-12-21] MEDS: CEFTAROLINE FOSAMIL IV SCH ×2 (07:58→21:26)
[2022-12-21] MEDS: DOCUSATE SODIUM 100 MG CAPSULE PO SCH ×2 (07:58→21:28)
[2022-12-21] MEDS: WATER IV SCH ×2 (07:58→21:26)
[2022-12-21] MEDS: APIXABAN 2.5 MG TABLET PO SCH (07:58)
[2022-12-21] MEDS: EPOETIN ALFA 10,000 UNITS/ML VIAL SQ SCH (07:59)
[2022-12-21] MEDS: PANTOPRAZOLE SODIUM 40 MG DR TABLET PO SCH (07:59)
[2022-12-21] MEDS ORDERED: HEPARIN SODIUM,PORCINE 5,000 UNITS/ML VIAL IVP PRN ×2 (15:45)
[2022-12-21] MEDS ORDERED: HEPARIN SODIUM,PORCINE 5,000 UNITS/ML VIAL IVP ONE (16:00)
[2022-12-21 16:26] LABS: BASOPHILS % (AUTO) 0.7 % (0.0-2.0); EOSINOPHILS % (AUTO) 0.7 % (1.0-6.0); HEMATOCRIT 29.1 % (41-53); HEMOGLOBIN 9.2 g/dL (13.5-17.5); LYMPHOCYTES # (AUTO) 0.8 K/uL (1.0-4.8); MEAN CORPUSCULAR HEMOGLOBIN 29.9 pg (26.0-34.0); MEAN CORPUSCULAR HGB CONC 31.5 G/dL (31.0-37.0); MEAN CORPUSCULAR VOLUME 95 fL (80-100); MONOCYTES # (AUTO) 0.9 K/uL (0.1-1.0); MONOCYTES % (AUTO) 11.2 % (2.0-9.0); NEUTROPHILS % (AUTO) 77.4 % (40.0-70.0); PLATELET COUNT (AUTO) 355 K/uL (150-450); RED BLOOD CELL COUNT(AUTO) 3.07 MIL/uL (4.50-5.90); RED CELL DISTRIBUTION WIDTH 19.4 % (11.5-14.5)
[2022-12-21 16:46] LABS: INR 1.5 (0.9-1.1); PROTHROMBIN TIME 15.2 SEC (9.4-11.6)
[2022-12-21] MEDS: HEPARIN SODIUM 25000 UNITS/D5W 250 ML IV PRN (17:15)
[2022-12-21 18:41] LABS: GLUCOMETER DEV NAME(LOC) 5N.1C; GLUCOSE,POINT OF CARE 155 MG/DL (70-110)
[2022-12-21 18:46] LABS: GLUCOMETER DEV NAME(LOC) 5N.2C; GLUCOSE,POINT OF CARE 146 MG/DL (70-110)
[2022-12-21] MEDS ORDERED: VANCOMYCIN HCL 500 MG in DEXTROSE 5%-WATER 100 ML IV ONE (20:00)
[2022-12-21] MEDS: TAMSULOSIN HCL 0.4 MG CAPSULE PO SCH (21:28)
[2022-12-21] MEDS: ZOLPIDEM TARTRATE 5 MG TABLET PO PRN (21:28)
[2022-12-21] MEDS: MIRTAZAPINE 15 MG TABLET PO SCH (21:28)
[2022-12-21] MEDS: ATORVASTATIN CALCIUM 20 MG TABLET PO SCH (21:29)
[2022-12-22] VITALS (8 sets, daily range): BP systolic 137–165; BP diastolic 73–98
[2022-12-22 06:20] LABS: BASOPHILS % (AUTO) 0.6 % (0.0-2.0); EOSINOPHILS % (AUTO) 1.3 % (1.0-6.0); HEMATOCRIT 28.1 % (41-53); LYMPHOCYTES % (AUTO) 11.3 % (22.0-44.0); MEAN CORPUSCULAR HEMOGLOBIN 30.5 pg (26.0-34.0); MEAN CORPUSCULAR HGB CONC 31.9 G/dL (31.0-37.0); MEAN CORPUSCULAR VOLUME 96 fL (80-100); MONOCYTES # (AUTO) 1.2 K/uL (0.1-1.0); MONOCYTES % (AUTO) 13.2 % (2.0-9.0); NEUTROPHILS # (AUTO) 6.5 K/uL (1.8-7.7); NEUTROPHILS % (AUTO) 73.6 % (40.0-70.0); PLATELET COUNT (AUTO) 346 K/uL (150-450); RED BLOOD CELL COUNT(AUTO) 2.94 MIL/uL (4.50-5.90); RED CELL DISTRIBUTION WIDTH 19.6 % (11.5-14.5)
[2022-12-22] MEDS: INSULIN LISPRO 100 UNITS/ML SQ PRN ×3 (06:23→17:50)
[2022-12-22 06:26] LABS: GLUCOMETER DEV NAME(LOC) 5N.1C; GLUCOSE,POINT OF CARE 151 MG/DL (70-110)
[2022-12-22 07:36] LABS: GLUCOMETER DEV NAME(LOC) 5S.1B; GLUCOSE,POINT OF CARE 146 MG/DL (70-110)
[2022-12-22] MEDS: PANTOPRAZOLE SODIUM 40 MG DR TABLET PO SCH (08:46)
[2022-12-22] MEDS: WATER IV SCH ×2 (08:46→20:41)
[2022-12-22] MEDS: DEXTROSE 5% IV SCH ×2 (08:46→20:41)
[2022-12-22] MEDS: DOCUSATE SODIUM 100 MG CAPSULE PO SCH ×2 (08:46→20:41)
[2022-12-22] MEDS: CEFTAROLINE FOSAMIL IV SCH ×2 (08:46→20:41)
[2022-12-22] MEDS: HEPARIN SODIUM 25000 UNITS/D5W 250 ML IV PRN (11:29)
[2022-12-22] MEDS ORDERED: MIDAZOLAM HCL 2 MG/2 ML VIAL ONE (14:25)
[2022-12-22] MEDS ORDERED: FLUMAZENIL 0.1 MG/ML 5 ML VIAL IVP ONE (14:25)
[2022-12-22] MEDS ORDERED: FentaNYL CITRATE PF 100 MCG/2 ML VIAL ONE (14:25)
[2022-12-22] MEDS ORDERED: NALOXONE HCL 0.4 MG/ML VIAL ONE (14:25)
[2022-12-22] MEDS ORDERED: FentaNYL CITRATE PF 100 MCG/2 ML VIAL IVP ONE ×2 (16:00)
[2022-12-22] MEDS ORDERED: MIDAZOLAM HCL 2 MG/2 ML VIAL IVP ONE (16:00)
[2022-12-22 20:36] LABS: GLUCOMETER DEV NAME(LOC) 5S.1B; GLUCOSE,POINT OF CARE 172 MG/DL (70-110)
[2022-12-22 20:36] LABS: GLUCOMETER DEV NAME(LOC) 5N.2C; GLUCOSE,POINT OF CARE 154 MG/DL (70-110)
[2022-12-22] MEDS: TAMSULOSIN HCL 0.4 MG CAPSULE PO SCH (20:41)
[2022-12-22] MEDS: ZOLPIDEM TARTRATE 5 MG TABLET PO PRN (20:41)
[2022-12-22] MEDS: MIRTAZAPINE 15 MG TABLET PO SCH (20:42)
[2022-12-22] MEDS: ATORVASTATIN CALCIUM 20 MG TABLET PO SCH (20:42)
[2022-12-23] VITALS (13 sets, daily range): BP systolic 129–173; BP diastolic 75–93
[2022-12-23 00:11] LABS: GLUCOMETER DEV NAME(LOC) 5N.1C; GLUCOSE,POINT OF CARE 117 MG/DL (70-110)
[2022-12-23] MEDS: CEFTAROLINE FOSAMIL IV SCH (08:34)
[2022-12-23] MEDS: EPOETIN ALFA 10,000 UNITS/ML VIAL SQ SCH (08:34)
[2022-12-23] MEDS: WATER IV SCH (08:34)
[2022-12-23] MEDS: DEXTROSE 5% IV SCH (08:34)
[2022-12-23] MEDS: PANTOPRAZOLE SODIUM 40 MG DR TABLET PO SCH (08:36)
[2022-12-23] MEDS: DOCUSATE SODIUM 100 MG CAPSULE PO SCH (08:36)
[2022-12-23] MEDS: HYDROCODONE/ACETAMINOPHEN 5-325 MG TABLET PO PRN (08:47)
[2022-12-23] MEDS: INSULIN LISPRO 100 UNITS/ML SQ PRN ×2 (12:31→17:44)
[2022-12-23] MEDS: HEPARIN SODIUM 25000 UNITS/D5W 250 ML IV PRN (12:37)
[2022-12-23 13:11] LABS: GLUCOMETER DEV NAME(LOC) 5S.1B; GLUCOSE,POINT OF CARE 134 MG/DL (70-110)
[2022-12-23 13:11] LABS: GLUCOMETER DEV NAME(LOC) 5S.1B; GLUCOSE,POINT OF CARE 233 MG/DL (70-110)
[2022-12-23 17:36] LABS: GLUCOMETER DEV NAME(LOC) 5S.1B; GLUCOSE,POINT OF CARE 163 MG/DL (70-110)
[2022-12-23] MEDS ORDERED: VANCOMYCIN HCL 750 MG in DEXTROSE 5%-WATER 250 ML IV ONE (20:00)
[2022-12-23] MEDS ORDERED: CARVEDILOL 12.5 MG TABLET PO SCH (21:00)
[2022-12-23] MEDS ORDERED: GABAPENTIN 100 MG CAPSULE PO SCH (21:00)
[2022-12-24] MEDS ORDERED: ALLOPURINOL 100 MG TABLET PO SCH (09:00)
[2022-12-24] MEDS ORDERED: ASPIRIN 81 MG CHEWABLE TABLET PO SCH (09:00)
== END 2022-12-23 20:40 | disposition short-term general hospital (02) | DRG 871 ==
LOC: EMS 12:09 → 5S 18:09 → UNDOADMIN 18:09 → ICU 20:22 → 5S 12-17 22:15
PROVIDERS: ADMIT Internal Medicine; ATTEND Internal Medicine
PROC: 5A1D70Z Performance of Urinary Filtration, Intermittent, Less than 6 Hours Per Day (ICD-10-PCS; principal; 2022-12-10)
PROC: 05H933Z Insertion of Infusion Device into Right Brachial Vein, Percutaneous Approach (ICD-10-PCS; 2022-12-10)
PROC: 5A1D70Z Performance of Urinary Filtration, Intermittent, Less than 6 Hours Per Day (ICD-10-PCS; 2022-12-11)
PROC: 5A1D70Z Performance of Urinary Filtration, Intermittent, Less than 6 Hours Per Day (ICD-10-PCS; 2022-12-14)
PROC: 5A1D70Z Performance of Urinary Filtration, Intermittent, Less than 6 Hours Per Day (ICD-10-PCS; 2022-12-17)
PROC: 5A1D70Z Performance of Urinary Filtration, Intermittent, Less than 6 Hours Per Day (ICD-10-PCS; 2022-12-18)
PROC: 5A1D70Z Performance of Urinary Filtration, Intermittent, Less than 6 Hours Per Day (ICD-10-PCS; 2022-12-20)
PROC: 5A1D70Z Performance of Urinary Filtration, Intermittent, Less than 6 Hours Per Day (ICD-10-PCS; 2022-12-22)
DX: A41.02 Sepsis due to Methicillin resistant Staphylococcus aureus (principal); N18.6 End stage renal disease; R65.21 Severe sepsis with septic shock; I13.2 Hypertensive heart and chronic kidney disease with heart failure and with stage 5 chronic kidney disease, or end stage renal disease; I48.92 Unspecified atrial flutter; M00.9 Pyogenic arthritis, unspecified; M86.9 Osteomyelitis, unspecified; E11.52 Type 2 diabetes mellitus with diabetic peripheral angiopathy with gangrene; L02.415 Cutaneous abscess of right lower limb; E87.1 Hypo-osmolality and hyponatremia; N17.9 Acute kidney failure, unspecified; S72.141K Displaced intertrochanteric fracture of right femur, subsequent encounter for closed fracture with nonunion; I50.32 Chronic diastolic (congestive) heart failure; D63.1 Anemia in chronic kidney disease; E11.51 Type 2 diabetes mellitus with diabetic peripheral angiopathy without gangrene; E11.22 Type 2 diabetes mellitus with diabetic chronic kidney disease; E11.40 Type 2 diabetes mellitus with diabetic neuropathy, unspecified; I25.10 Atherosclerotic heart disease of native coronary artery without angina pectoris; I48.0 Paroxysmal atrial fibrillation; M10.9 Gout, unspecified; E11.65 Type 2 diabetes mellitus with hyperglycemia; E11.69 Type 2 diabetes mellitus with other specified complication; E78.00 Pure hypercholesterolemia, unspecified; N40.0 Benign prostatic hyperplasia without lower urinary tract symptoms; L89.629 Pressure ulcer of left heel, unspecified stage; D63.8 Anemia in other chronic diseases classified elsewhere; Z79.01 Long term (current) use of anticoagulants; Z99.2 Dependence on renal dialysis
CPT/HCPCS: 36245; 36569; 71045; 73502; 73700; 73701; 75989; 76937; 77012; 78582; 80048; 80053; 80202; 82565; 82962; 83605; 83735; 84100; 84145; 84484; 84520; 85025; 85049; 85610; 85730; 86140; 86706; 87040; 87070; 87075; 87077; 87081; 87186; 87205; 87340; 87804; 90935; 93005; 93306; 93925; 99285; A9539; A9540; G0378; J0692; J0712; J0885; J1644; J2250; J2270; J2310; J2405; J2543; J3010; J3370; J3490; J7030; J7050; J7060; P9046; Q9967; 36415-L1; 36415-TC